=== PATIENT | female | born 1950 | race Caucasian/White ===

== ENCOUNTER 2020-04-24 02:17 | Emergency (ER) | payer MEDICARE, OTHER ==
[~2020-04-24] VITALS: Ht 157.5 cm; Wt 75.0 kg
--- NOTE | 2020-04-24 02:52 | PHYS DOC ---
General Adult EDM: Chief Complaint: NAUSEA/VOMITING/DIARRHEA HPI: HPI: 69-year-old female presents with vomiting and chest heaviness. The patient is feeling well today and then began to have vomiting around 1900. She has vomited multiple times since that time. After several rounds of vomiting, she has developed a chest heaviness. She describes it as mild to moderate. She continues to have dry heaves. She denies shortness of breath or diaphoresis. She had episode of chest heaviness yesterday, but that resolved on its own. She was feeling otherwise well at that time. She denies fever or chills. She has no specific COVID-19 risk factors. Review of Systems: Review of Systems: Constitutional: Denies fever or chills Eyes: Denies change in visual acuity HENT: Denies nasal congestion or sore throat Respiratory: Denies cough or shortness of breath Cardiovascular: Chest pain GI: Nausea, vomiting. Denies abdominal pain, bloody stools or diarrhea : Denies dysuria Musculoskeletal: Denies back pain or joint pain Integument: Denies rash Neurologic: Denies headache, focal weakness or sensory changes Endocrine: Denies polyuria or polydipsia Lymphatic: Denies swollen glands Psychiatric: Denies depression or anxiety Heart Score: HEART Score for Chest Pain: HEART Score for Chest Pain Response (Comments) Value History Slighlty/Non-Suspicious 0 ECG Normal 0 Age > 65 2 Risk Factors 1 or 2 Risk Factors 1 Troponin < Normal Limit 0 Total 3 Risk Factors: Risk Factors: DM, Current or recent (<one month) smoker, HTN, HLP, family history of CAD, obesity. Risk Scores: Score 0 - 3: 2.5% MACE over next 6 weeks - Discharge Home Score 4 - 6: 20.3% MACE over next 6 weeks - Admit for Clinical Observation Score 7 - 10: 72.7% MACE over next 6 weeks - Early Invasive Strategies Current Medications: Current Meds: Current Medications Medications (Trade) Dose Ordered Sig/Luke Start Time Stop Time Status Last Admin Dose Admin Ondansetron HCl (Zofran) 4 mg 1X ONCE 04/24/20 02:45 04/24/20 02:46 UNV Sodium Chloride 1,000 ml @ 1,000 mls/hr 1X ONCE 04/24/20 02:45 04/24/20 03:44 UNV Physical Exam: PE: Constitutional: Well developed, well nourished, no acute distress, non-toxic appearance. [] HENT: Normocephalic, atraumatic, bilateral external ears normal, oropharynx moist, no oral exudates, nose normal. [] Eyes: PERRLA, EOMI, conjunctiva normal, no discharge. [] Neck: Normal range of motion, no tenderness, supple, no stridor. [] Cardiovascular:Heart rate regular rhythm, no murmur [] Lungs & Thorax: Bilateral breath sounds clear to auscultation [] Abdomen: Bowel sounds normal, soft, no tenderness, no masses, no pulsatile masses. [] Skin: Warm, dry, no erythema, no rash. [] Back: No tenderness, no CVA tenderness. [] Extremities: No tenderness, no cyanosis, no clubbing, ROM intact, no edema. [] Neurologic: Alert and oriented X 3, normal motor function, normal sensory function, no focal deficits noted. [] Psychologic: Affect normal, judgement normal, mood normal. [] EKG: EKG: Sinus rhythm, rate 90, normal axis, no ST elevations or depressions. Prominent T waves. [] Radiology/Procedures: Radiology/Procedures: [] Impressions: INDICATION: Reason: CP / Spl. Instructions: / History: COMPARISON: None. FINDINGS: Single view of chest obtained. Cardiac silhouette is unremarkable. There is some calcified lymph nodes in the mediastinum and calcified nodule in the right lung which could be from prior granulomatous disease. No definite focal airspace consolidation or pulmonary edema. IMPRESSION: * No focal airspace consolidation or edema. Electronically signed by: Antoni Bagley MD (04/24/2020 3:38 AM) [id number] DICTATED AND SIGNED BY: ANTONI BAGLEY MD DATE: 04/24/20 0338 CC: KARENA LAINEZ DO; MIN SPENCER MD ~ Course & Med Decision Making: Course & Med Decision Making Pertinent Labs and Imaging studies reviewed. (See chart for details) The patient's labs are significant for an elevated white count, elevated BUN 72 and creatinine 9.8, potassium 7.9. See labs for more details of abnormal labs. Chest x-ray is negative for acute findings. Patient appears to be in acute renal failure. She has been given 2 L of normal saline, a gram of calcium gluconate, 10 mEq of insulin, an amp of D50. The patient would like to be transferred to [facility]. I spoke with the transfer center and Dr. Moyer has accepted her for transfer. He has requested an additional continu ous albuterol nebulizer and 2 A of bicarb. These have been ordered. The patient has requested the transfer to . She will go by ambulance. 42 minutes of critical care time was spent on this patient exclusive of other billable procedures. [] Dragon Disclaimer: Dragon Disclaimer: This electronic medical record was generated, in whole or in part, using a voice recognition dictation system. Departure Departure: Impression: Primary Impression: Acute kidney failure Qualified Codes: N17.9 - Acute kidney failure, unspecified Additional Impressions: Hyperkalemia Dehydration Nausea & vomiting Qualified Codes: R11.2 - Nausea with vomiting, unspecified Disposition: 02 XFER SHT-TRM HOSP Condition: GUARDED Referrals: MIN SPENCER MD (PCP) Justification of Admission: Justification of Admission: Justification of Admission Dx: Yes Acute Renal Failure: Serum Cr > 4mg/dL KARENA LAINEZ DO Apr 24, 2020 02:52
[2020-04-24] MEDS ORDERED: ONDANSETRON PF 4 MG/2 ML VIAL. IVP ONE ×2 (03:00→05:15)
[2020-04-24] MEDS ORDERED: IV NORMAL SALINE 1,000ML 1,000 ML IV ONE ×2 (03:00→04:15)
[2020-04-24 03:21] LABS: BASO # 0.1 x10^3/uL (0.0-0.2); BASO % 1 % (0-3); EOS % 0 % (0-3); HEMOGLOBIN 14.4 g/dL (12.0-15.5); LYMPH # 3.7 x10^3/uL (1.0-4.8); LYMPH % 24 % (24-48); MEAN CORPUSCULAR HEMOGLOBIN 31 pg (25-35); MEAN CORPUSCULAR HGB CONC 32 g/dL (31-37); MEAN CORPUSCULAR VOLUME 96 fL (79-100); MONO # 0.5 x10^3/uL (0.0-1.1); MONO % 3 % (0-9); NEUT % 71 % (31-73); PLATELET COUNT 394 x10^3/uL (140-400); RED BLOOD COUNT 4.72 x10^6/uL (3.50-5.40); RED CELL DISTRIBUTION WIDTH 13.5 % (11.5-14.5); WHITE BLOOD COUNT 15.4 x10^3/uL (4.0-11.0)
[2020-04-24 03:36] LABS: % BANDS 2 % (0-9); % LYMPHS 24 % (24-48); % MONOS 1 % (0-10); % SEGS 73 % (35-66); PLT ESTIMATE ADEQUATE (ADEQUATE)
[2020-04-24 03:39] LABS: ALBUMIN 4.2 g/dL (3.4-5.0); ALBUMIN/GLOBULIN RATIO 1.2 (1.0-1.7); CALCIUM 9.7 mg/dL (8.5-10.1); CREATININE 9.8 mg/dL (0.6-1.0); TOTAL BILIRUBIN 0.4 mg/dL (0.2-1.0); TOTAL PROTEIN 7.7 g/dL (6.4-8.2)
--- NOTE | 2020-04-24 03:41 | RAD ---
INDICATION: Reason: CP / Spl. Instructions: / History: COMPARISON: None. FINDINGS: Single view of chest obtained. Cardiac silhouette is unremarkable. There is some calcified lymph nodes in the mediastinum and calcified nodule in the right lung which could be from prior granulomatous disease. No definite focal airspace consolidation or pulmonary edema. IMPRESSION: * No focal airspace consolidation or edema. Electronically signed by: Nigel Cavanaugh MD (04/24/2020 3:38 AM) [id number]
[2020-04-24 04:29] LABS: POTASSIUM 7.9 mmol/L (3.5-5.1)
[2020-04-24] MEDS ORDERED: CALCIUM GLUCONATE 1,000 MG/10 ML VIAL IV ONE (04:30)
--- NOTE | 2020-04-24 04:34 | EKG ---
[address] [address] Test Date: 2020-04-24 Test Time: 02:52:27 Pat Name: MAIKOL SIEGEL Department: Room: Gender: F Postpartum Nurse: : 1950 Requested By: KARENA LAINEZ Order Number: [id number] Reading MD: Measurements Intervals [place] Rate: 181 P: [place]: QRS: 14 QRSD: 74 T: 38 QT: 292 QTc: 512 Interpretive Statements IRREGULAR RHYTHM, NO P-WAVE FOUND VENTRICULAR PREMATURE COMPLEX(ES) ABNORMAL ECG RI6.02 No previous ECG available for comparison
[2020-04-24] MEDS ORDERED: DEXTROSE 50% 25 GM / 50ML DISP.SYRIN. IV ONE (04:45)
[2020-04-24] MEDS ORDERED: INSULIN REGULAR 100 UNIT/ML 3ML VIAL. IV ONE (04:45)
[2020-04-24 05:40] LABS: CALCIUM 8.4 mg/dL (8.5-10.1); GFR 4.4; POTASSIUM 5.9 mmol/L (3.5-5.1)
[2020-04-24] MEDS ORDERED: ALBUTEROL SULFATE 2.5 MG/3 ML NEBU. CONT NEB ONE (06:00)
[2020-04-24] MEDS ORDERED: SODIUM BICARB ADULT 8.4% 50 MEQ/50 ML DISP.SYRIN. IV ONE ×2 (06:00)
--- NOTE | 2020-04-24 06:32 | EKG ---
[address] [address] Test Date: 2020-04-24 Test Time: 05:57:11 Pat Name: MAIKOL SIEGEL Department: Room: Gender: F [employer]: : 1950 Requested By: KARENA LAINEZ Order Number: [id number] Reading MD: Measurements Intervals [place] Rate: 93 P: 63 VT: 194 QRS: 15 QRSD: 74 T: 30 QT: 348 QTc: 435 Interpretive Statements SINUS RHYTHM NO SPECIFIC ECG ABNORMALITIES RI6.02 No previous ECG available for comparison
[2020-04-24] MEDS ORDERED: ACETAMINOPHEN 500 MG TABLET PO ONE (07:00)
[2020-04-24 07:49] VITALS: BP 110/97
== END 2020-04-24 07:50 | disposition short-term general hospital (02) ==
LOC: ER 02:17
DX: N17.9 Acute kidney failure, unspecified (principal); E87.5 Hyperkalemia; E86.0 Dehydration; R11.2 Nausea with vomiting, unspecified
CPT/HCPCS: 36415; 71045; 80048; 80053; 84484; 85007; 85025; 93005; 94644; 96361; 96374; 96375; 96376; 99291; J0610; J1815; J2405; J7030; J7613